=== PATIENT | female | born 2000 | race Caucasian/White ===

== ENCOUNTER 2025-03-04 10:05 | Emergency (ER) | payer OTHER, SELFPAY ==
--- OUTSIDE RECORDS SUMMARY | 2025-03-04 10:08 | XMS_ITS | Clinical Summary ---
Author Organization [facility] Address [address], [place] [address] Care Team Providers Care Application Development Director Name Role Phone Unavailable Primary Care Provider Unavailabl e Source Comments You are receiving this document as you are listed as the primary care provider,follow-up provider, or the patient has been referred to you for consultation.This is in compliance with the Medicare and[facility] Cent[facility]aid EHR Incentive Program,which states Providers who transition their patient to another setting of careor provider of care or refers their patient to another provider of care shouldprovide summary care record for each transition of care or referral. [facility] Allergies No known active allergies Medications clindamycin (CLEOCIN T) 1 % lotion Apply topically two times a day. Active tretinoin (RETIN-A) 0.025 % cream Apply topically every evening. Active sertraline (ZOLOFT) 50 MG tablet Take 50 mg by mouth daily. Active drospirenone-et hinyl estradiol (CLARENCE) 3-0.03 MG tabletIndicatio ns:Dysmenorrhea ,Menorrhagia with regular cycle,Acne vulgaris Take 1 tablet by mouth once daily 112 Tablet 3 1 Active Active Problems Problem Noted Date Diagnosed Date Dysmenorrhea Menorrhagia Acne Anxiety Overview (09/01/2020): Managed by Ethel BARAHONA Arthritis Overview (09/01/2020): Knee Family History Medical History Relation Name Comments Thyroid Disorder Maternal Grandmother Relation Name Status Comments Father Alive Mother Alive Brother 1 Alive Brother 2 Alive Maternal Grandfather Alive Maternal Grandmother Alive Paternal Grandfather Paternal Grandmother Alive Social History Tobacco Use Types Packs/Day Years Used Date Smoking Tobacco: Never Smokeless Tobacco: Never Alcohol Use Standard Drinks/Week Comments Yes 0 (1 standard drink = 0.6 oz pur e alcohol) socially AUDIT-C Answer Date Recorded Q1: How often do you have a drink containing alc ohol? Never 09/01/2020 Average Number of Drinks Not on file 021 Frequency of Binge Drinking Not on file 08/18 Comments No Sex and Gender Information Value Date Recorded Sex Assigned at Not on file Legal Sex Female 3:38 PM WASHERY BOSS Gender Identity Not on file Sexual Orientation Not on file Occupation Industry Job Start Date Job End Date Student Not on file Not on file Not on file Last Filed Vital Signs Vital Sign Reading Time Taken Comments Blood Pressure 104/72 11/14/2020 9:29 AM CDT Pulse 99 11/14/2020 9:29 AM CDT Temperature - - Respiratory Rate - - Oxygen Saturation - - Inhaled Oxygen Concentration - - Weight 54.4 kg (120 lb) 11/14/2020 9:29 AM CDT Height 167.6 cm (5' 6) 09/01/2020 11:28 AM WASHERY BOSS Body Mass Index 19.37 09/01/2020 11:28 AM WASHERY BOSS Plan of Treatment Health Maintenance Due Date Last Done Comments Chlamydia 1999 Hep C Screening (Preventive Services) 1999 HPV Vaccine (1 - 3-dose series) 2014 HIV Screening (Preventive Services) 2015 Adult Preventive Visit 2017 DTaP/Tdap/Td Vaccine (1 - Tdap) 2018 HepB Vaccine (1) 2018 Cervical Cancer Screening 09/01/2023 09/01/2020 COVID-19 Vaccine (3 - 2023-2 5 season) 2024 03/16/2021, 02/23/2021 Influenza Vaccine (#1) 2025 Zoster/Shingles Vaccine (1 o f 2) 2049 HepA Vaccine Aged Out No longer eligi ble based on patient's age to complete this topic Hib Vaccine Aged Out No longer eligi ble based on patient's age to complete this topic IPV (Polio) Vaccine Aged Out No longe r eligible based on patient's age to complete this topic MCV4 Vaccine Aged Out No longer eligi ble based on patient's age to complete this topic Meningococcal B Vaccine Aged Out No l onger eligible based on patient's age to complete this topic Pneumococcal Vaccine Aged Out No long er eligible based on patient's age to complete this topic Procedures Procedure Name Priority Date/Time Associated Diagnosis Comments CYTOLOGY (PAP) Routine 09/01/2020 1:21 PM WASHERY BOSS Screening for malignant neoplasm of cervix from Last 3 Months or Most Recently Relevant to Health Maintenance Results * PAP Test (09/01/2020 1:21 PM WASHERY BOSS) Case Report Pap Case: [id number] Authorizing Provider: Carlee Marlow APRN, CNP Collected: 09/01/2020 1321 Ordering Location: [facility] Received: 09/01/2020 1337 Services-PLASTIC INSTALLER First Screen: Leslie Santos E, CT (ASCP) Specimen: Pap Test, Routine, Cervix/Endocervix 09/06/2020 11:47 AM WASHERY BOSS [facility] Pap Specimen Adequacy Satisfactory for evaluation, endocervical/howard sformation zone component present. 09/06/2020 11:47 AM WASHERY BOSS [facility] Pap Interpretation Negative for intraepithelial lesion or malignancy (NILM). 09/06/2020 11:47 AM WASHERY BOSS [facility] at 1147 WASHERY BOSS Pap Disclaimer The Pap test is a screening test designed to aid in the detection of cervical cancer and its precursor lesions. It is not a diagnostic procedure and should not be used as the sole means of detecting cervical cancer. Both false-positive and false-negative results may occur. 09/06/2020 11:47 AM WASHERY BOSS [facility] Gross Description The specimen is received in SurePath fixative and properly labeled. 1 Pap-stained SurePath slide is prepared. 09/06/2020 11:47 AM WASHERY BOSS [facility] Embedded Images 11:47 AM WASHERY BOSS [facility] Other Specimen Type ENTIRE ENDOCERVIX / Unknown 09/01/2020 1:21 PM WASHERY BOSS 09/01/2020 1:37 PM WASHERY BOSS Comment:LMP: Patient's last menstrual period was 08/19/2020 (exact date). us Carlee Marlow APRN, CNP LAB PATHOLOGY Final R esult [facility] [address] [place] [address], [facility] from Last 3 Months or Most Recently Relevant to Health Maintenance
--- OUTSIDE RECORDS SUMMARY | 2025-03-04 10:08 | XMS_ITS | Clinical Summary ---
Author Organization [facility] Address [address] [place] [id number] Care Team Providers Care Mathematical Technician Name Role Phone [facility] Primary Care Provider + Social History Tobacco Use Types Packs/Day Years Used Date Smoking Tobacco: Never Assessed Adolescent Education Answer Date Record ed Getting School Help Needed Not on file 05/10 Comments Unknown Sex and Gender Information Value Date Recorded Sex Assigned at Not on file Legal Sex Female 7:42 PM CDT Gender Identity Not on file Sexual Orientation Not on file Last Filed Vital Signs Vital Sign Reading Time Taken Comments Blood Pressure 125/88 12/16/2020 7:45 PM CDT Pulse 100 12/16/2020 7:45 PM CDT Temperature 36.7 C (98 F) 12/16/2020 7:45 PM CDT Respiratory Rate 18 12/16/2020 7:45 PM CDT Oxygen Saturation 99% 12/16/2020 7:45 PM CDT Inhaled Oxygen Concentration - - Weight 54.4 kg (120 lb) 12/16/2020 7:45 PM CDT Height - - Body Mass Index - - Plan of Treatment Not on file Care Teams Mathematical Technician Relationship Specialty Start Date End Date [facility] [address] [place] [id number] PCP - General 12/16/20
--- OUTSIDE RECORDS SUMMARY | 2025-03-04 10:08 | XMS_ITS | Clinical Summary ---
Author Organization [facility] Address [address] [place] [address] Care Team Providers Care Gauntlet Pairer Name Role Phone [facility] Primary Care Provider + Allergies No known active allergies Medications clindamycin 1% (CLEOCIN-T) 1 % lotion APPLY TO ACNE TWICE DAILY 0 Active tretinoin 0.05 % 0.05 % cream APPLY TO ACNE AREAS ON THE FACE AT BEDTIME 0 Active tretinoin 0.1 % cream APPLY TO FACIAL AREAS AT BEDTIME 0 Active sertraline (ZOLOFT) 50 mg tabletIndication s:Anxiety Take 1 Tablet (50 mg) by mouth every morning. 30 Tablet 1 Active Junel FE 09/06 (28) tablet Take 1 Tablet by mouth once daily. 5 Active amoxicillin 500 mg capsuleIndicatio ns:Pharyngitis, unspecified etiology Take 2 Capsules (1,000 mg) by mouth once daily for 10 days. 20 Capsule 5 03/12/20 25 Active Active Problems Problem Noted Date Diagnosed Date Anxiety 08/17/2020 Encounters Date Type Department Care Team Description 03/02/2025 8:55 AM CDT Office Visit [facility] [address] [place] [address] Ken Hou PA Throat Problem 03/02/2025 Telephone [facility] [address] [place] [address] Ken Hou PA Results 03/02/2025 Travel from Last 3 Months Immunizations Immunization Administration Dates Next Due COVID-19 vaccine (Pfizer-BioNTech 30mcg/0.3mL) MEDARDO [place] 03/16/2021,02/23/2021 Social History Tobacco Use Types Packs/Day Years Used Date Smoking Tobacco: Never Smokeless Tobacco: Never Alcohol Use Standard Drinks/Week Comments Yes 0 (1 standard drink = 0.6 oz pur e alcohol) PHQ-2 Answer Date Recorded PHQ-2 TOTAL SCORE 0 08/15/2020 Social Connections Answer Date Recorded Frequency of Communication with Friends and Fami ly Not on file 08/18/2021 Financial Resource Strain Answer Date R ecorded Difficulty of Paying Living Expenses Not on file 08/18/2021 Difficulty of Paying Living Expenses Not on file 08/18/2021 Comments No Sex and Gender Information Value Date Recorded Sex Assigned at Not on file Legal Sex Female 12:24 PM BARREL LATHE OPERATOR OUTSIDE Gender Identity Not on file Sexual Orientation Not on file Obstetrics History Last Filed Vital Signs Vital Sign Reading Time Taken Comments Blood Pressure 108/52 08/15/2020 3:57 PM BARREL LATHE OPERATOR OUTSIDE Pulse 97 03/02/2025 9:11 AM CDT Temperature 36.3 C (97.4 F) 03/02/2025 9:11 AM CDT Respiratory Rate 20 03/02/2025 9:11 AM CDT Oxygen Saturation 97% 03/02/2025 9:11 AM CDT Inhaled Oxygen Concentration - - Weight 59.1 kg (130 lb 3.2 oz) 03/02/2025 9:11 A M CDT Height 166.4 cm (5' 5.5) 08/15/2020 3:57 PM BARREL LATHE OPERATOR OUTSIDE Body Mass Index 21.34 08/15/2020 3:57 PM BARREL LATHE OPERATOR OUTSIDE Plan of Treatment Health Maintenance Due Date Last Done Comments Tetanus booster 2010 HIV for age 15-65 2014 HPV series for age 9-26 (1 - 3-dose series) 2014 Hepatitis C screening for ag e 18-79 2017 Hepatitis B series for 19+ ( 1 of 3 - 19+ 3-dose series) 2018 Pap test for age 21-65 2020 BMI (ht and wt on same day) for age 18+ 08/15/2021 08/15/2020 Depression screening for age 12+ 08/15/2021 08/15/2020 COVID-19 vaccine series ( season) 2024 08/28/2021, 03/16/2021, 02/23/2021 Influenza Vaccine (#1) 2025 Pneumococcal series for age 6-49 Aged Out No longer eligible b ased on patient's age to complete this topic Procedures Procedure Name Priority Date/Time Associated Diagnosis Comments THROAT RAPID STREP ONLY CLINIC Routine 03/02/2025 9:23 AM CDT Flu-like symptoms COVID/FLU/RSV PANEL Routine 03/02/2025 9 :14 AM CDT Flu-like symptoms STREP A PCR Routine 03/02/2025 9:14 AM CDT Flu-like symptoms from Last 3 Months Results * THROAT RAPID STREP ONLY CLINIC (03/02/2025 9:23 AM CDT) Pathologist [facility] POC, GROUP A STREP NOT DETECTED NOT DETECTED 03/02/2025 9:42 AM CDT [facility] Comment: The [place] [employer] recommends that a throat culture be performed if a rapid group A streptococcus assay yields a negative result. [employer] recommends Streptococcus, Group A culture. Throat SPECIMEN FROM THROAT / Unknown Non-Blood / Unknown 03/02/2025 9:23 AM CDT 03/02/2025 9:30 AM CDT Ken TONG MICROBIOLOGY Final Re sult [employer] [facility] [address] [place] [address], [place] [phone] [facility] [address] [place] [address], [place] * COVID/FLU/RSV PANEL (03/02/2025 9:14 AM CDT) Pathologist [facility] COVID 19 [employer] MOLECULAR Negative Negative 03/02/2025 4:41 PM CDT [facility] INFLUENZA A PCR Negative 5 4:41 PM CDT [facility] INFLUENZA B PCR Negative 5 4:41 PM CDT [facility] Respiratory Syncytial Virus Negative 03/02/2025 4:41 PM CDT [facility] Swab NASOPHARYNGEAL SWAB / Unknown Non-Blood / Unknown 03/02/2025 9:14 AM CDT 03/02/2025 9:39 AM CDT Ken TONG MICROBIOLOGY Final Re sult [facility] [address] * STREP A PCR (03/02/2025 9:14 AM CDT) GROUP A STREP Negative 03/02/2025 3:47 PM CDT [facility] Throat SPECIMEN FROM THROAT / Unknown Non-Blood / Unknown 03/02/2025 9:14 AM CDT 03/02/2025 9:39 AM CDT Ken TONG MICROBIOLOGY Final Re sult Performing Organization Address City/[facility]/ZIP Co de Phone Number [facility] [address] from Last 3 Months Insurance [facility] Care Teams Gauntlet Pairer Relationship Specialty Start Date End Date [facility] [address] [place] [address] PCP - General 08/09/20
[2025-03-04 10:19] VITALS: BP 125/84; PULSE 108; RESP 20; TEMP 37; O2SAT 98; BMI 21.1
--- NOTE | 2025-03-04 11:03 | CRLHL7_ITS ---
For Patients: As a result of the Century Cures Act, medical imaging exams and procedure reports are released immediately into your electronic medical record. You may view this report before your referring provider. If you have questions, please contact your health care provider. TECHNIQUE: Multiplanar CT examination of the soft tissues of the neck was performed after the administration of 100 mL Omnipaque 350 intravenous contrast. INDICATION: Bilateral neck pain. Evaluate for peritonsillar abscess. COMPARISON: None. FINDINGS: Visualized intracranial contents: Unremarkable. Aerodigestive: There is abnormal heterogeneous enlargement and hyperenhancement of the palatine tonsils, left greater than right. No drainable peritonsillar abscess is identified. Otherwise, the oral cavity is unremarkable. The base of tongue is unremarkable. The epiglottis is unremarkable. The nasopharynx appears unremarkable. The hypopharynx and larynx are unremarkable. The trachea appears unremarkable. Salivary glands: The visualized submandibular and parotid glands are unremarkable. Lymph nodes: Prominent cervical lymph nodes diffusely, likely reactive. Soft tissues: The visualized soft tissues are unremarkable. Vascular: Unremarkable. Thyroid: Unremarkable. Visualized upper lungs: Unremarkable. Osseous: No acute osseous abnormalities. IMPRESSION: Findings compatible with acute bilateral palatine tonsillitis. No peritonsillar abscess identified. Please note that all CT scans at this facility use dose modulation, iterative reconstruction, and/or weight-based dosing when appropriate to reduce radiation dose to as low as reasonably achievable. Dictated by Alexandru Avery MD @ 03/04/2025 12:49:07 PM (Electronically Signed)
--- NOTE | 2025-03-04 11:06 | ED_ITS ---
HPI - General Adult General Chief complaint: Sore Throat Stated complaint: Blisters on tonsils- Time Seen by Provider: 03/04/25 10:56 History of Present Illness HPI narrative: Patient is a 24-year-old woman who presents with severe pharyngitis last 7 days. She has been seen twice in urgent care and strep swabs have been negative. She is unable to hear drink and has a very difficult time speaking. Patient is otherwise healthy and appears to be up-to-date on her tetanus shot. She has had no fevers no chills no cough no shortness of breath. No difficulty with airway or breathing. Patient is currently on day 2 of a course of amoxicillin. Related Data Home Medications ?Medication ?Instructions ?Recorded ?Confirmed norethindrone 1 mg-ethinyl 1 tab PO DAILY 02/28/25 estradiol 20 mcg (21)-iron 75 mg (7) tablet (Blisovi Fe 09/06 (28)) sertraline 50 mg tablet 50 mg PO DAILY 02/28/2502/15 Allergies Allergy/AdvReac Type Severity Reaction Status Date / Time No Known Drug Allergies Allergy Verified 02/28/25 16:33 Review of Systems Status of ROS: Reports: 10 or more systems reviewed and unremarkable except as noted in History and below Exam Narrative: Exam Narrative: EXAM GENERAL: Patient appears comfortable. EYES: No scleral icterus. ENT: Tympanic membranes are normal however the pharynx is crowded with a tonsillar enlargement and exudate. Significant anterior cervical lymphadenopathy noted as. THYROID: no thyroid nodules or thyromegaly. LYMPH: No supraclavicular or cervical lymphadenopathy. SKIN: Visible skin seen during exam normal or with benign process only. EXT: No dependent lower extremity pedal edema. HEART: Regular rate and rhythm with no murmurs, rubs, or gallops. LUNGS: Clear to auscultation bilaterally with no crackles or wheezes. ABD: Soft, non tender, non distended. PSYCH: Good eye contact, speech is not pressured. Const: Vital Signs, click to edit/add: Vital Signs - 24 hr 03/04/25 10:19 Temperature 98.6 F Pulse Rate [Pulse Oximeter] 108 H Respiratory Rate 20 Blood Pressure [Ri ght Upper Arm] 125/84 Pulse Oximetry 98 Oxygen Delivery Me thod Room Air Course Course ED Course: Patient seen and examined. IV placed normal saline given CT of the pharynx pending. Vital Signs Vital signs: Initial Vital Signs Temperature 98.6 F 03/04/25 10:19 Temperature Source Temporal Artery Scan 03/04/25 10:19 Pulse Rate 108 H 03/04/25 10:19 Respiratory Rate 20 03/04/25 10:19 Blood Pressure 125/84 03/04/25 10:19 Blood Pressure Mean 97 03/04/25 10:19 Pulse Oximetry 98 03/04/25 10:19 Oxygen Delivery Method Room Air 03/04/25 10:19 Vital Signs Temperature 98.6 F 03/04/25 10:19 Pulse Rate 108 H 03/04/25 10:19 Respiratory Rate 20 03/04/25 10:19 Blood Pressure 125/84 03/04/25 10:19 Pulse Oximetry 98 03/04/25 10:19 Oxygen Delivery Method Room Air 03/04/25 10:19 Temperature 98.6 F 03/04/25 10:19 Pulse Rate 108 H 03/04/25 10:19 Respiratory Rate 20 03/04/25 10:19 Blood Pressure 125/84 03/04/25 10:19 Pulse Oximetry 98 03/04/25 10:19 Oxygen Delivery Method Room Air 03/04/25 10:19 Medications Administered Medications: Discontinued Medications Generic Name Dose Route Start Last Admin Trade Name Freq PRN Reason Stop Dose Admin Sodium Chloride 1,000 mls @ 1,000 mls/hr 03/04/25 11:02 03/04/25 12:00 0.9 % Sodium Chloride 1000 Ml IV 03/04/25 12:01 1,000 mls/hr .Q1H GUMARO Administration Medical Decision Making [facility] Narrative Medical decision making narrative: Patient presents with severe pharyngitis. She has tested negative for strep twice. Currently on amoxicillin but her symptoms are refractory. We did do a CT of her neck soft tissue and there is no evidence of peritonsillar abscess. I did give her L normal saline 40 mg of Solu-Medrol and send her home with prednisone 20 mg b.i.d. for the next 5 days. She will ventral diet activity as tolerated she can finish out her course of antibiotics. Did give her my card she can follow-up with me in the office on a p.r.n. basis. Discharge Plan Discharge Clinical Impression: Acute tonsillitis Patient Disposition: Home, Self-Care Condition: Stable Instructions: Tonsillitis (ED) Additional Instructions: Prednisone as directed Finish antibiotics Tylenol Fluids Follow-up with your doctor as needed Activity Level: No Restrictions Discharge Diet: Regular Prescriptions: No Action norethindrone-e.estradiol-iron [Blisovi Fe 09/06 (28)] 1 mg-20 mcg (21)/75 mg (7) tablet 1 tab PO DAILY sertraline 50 mg tablet 50 mg PO DAILY Follow Up/Referrals: Provider,Not a Local [Primary Care Provider, Family Practice] Stand Alone Forms: [facility] Info Instructions
== END 2025-03-04 13:15 | disposition home or self-care (01) ==
PROVIDERS: Emergency Provider Internal Medicine
DX: J03.90 Acute tonsillitis, unspecified (principal)
CPT/HCPCS: 70491; 96361; 96374; 99283; 99284; 99285; J2919; J7030; Q9967